=== PATIENT | female | born 1970 | race Caucasian/White ===

== ENCOUNTER 2017-07-13 18:16 | Emergency (ER) | payer OTHER ==
[2017-07-13] MEDS: LORAZEPAM 1 MG TAB PO (19:54)
== END 2017-07-13 20:37 | disposition home or self-care (01) ==
LOC: FTE 18:16
DX: F41.9 Anxiety disorder, unspecified (principal); I10 Essential (primary) hypertension
CPT/HCPCS: 82962; 93005; 99283-25

== ENCOUNTER 2018-01-10 11:21 | Emergency (ER) | payer OTHER ==
[2018-01-10 13:06] LABS: URINE PH (Dip) POC 6.5 (5.0-8.5)
[2018-01-10 13:06] LABS: URINE BLOOD (Dip) POC Trace-intact (NEGATIVE); URINE GLUCOSE (Dip) POC Negative (NEGATIVE); URINE KETONES (Dip) POC Negative (NEGATIVE); URINE LEUKOCYTE EST (Dip) POC 1+ (NEGATIVE); URINE NITRITE (Dip) POC Negative (NEGATIVE); URINE TOTAL PROTEIN POC Negative (NEGATIVE)
[2018-01-10] MEDS: KETOROLAC 30 MG INJ IM (13:11)
== END 2018-01-10 13:53 | disposition home or self-care (01) ==
LOC: FTE 11:21
DX: M54.42 Lumbago with sciatica, left side (principal); I10 Essential (primary) hypertension; E11.9 Type 2 diabetes mellitus without complications; Z87.891 Personal history of nicotine dependence
CPT/HCPCS: 81003; 81025; 87086; 96372; 99284-25

== ENCOUNTER 2019-01-28 15:07 | Emergency (ER) | payer OTHER ==
[2019-01-28 16:19] LABS: URINE PH (Dip) POC 6.5 (5.0-8.5)
[2019-01-28 16:19] LABS: URINE BLOOD (Dip) POC Trace-intact (NEGATIVE); URINE GLUCOSE (Dip) POC Negative (NEGATIVE); URINE KETONES (Dip) POC Negative (NEGATIVE); URINE LEUKOCYTE EST (Dip) POC 1+ (NEGATIVE); URINE NITRITE (Dip) POC Negative (NEGATIVE); URINE TOTAL PROTEIN POC Negative (NEGATIVE)
[2019-01-28] MEDS: ONDANSETRON (ODT) 4 MG TAB ODT (16:21)
[2019-01-28] MEDS: HYDROCODONE/APAP (5/325) TAB PO (16:21)
== END 2019-01-28 16:45 | disposition home or self-care (01) ==
LOC: FTE 16:45
DX: R51 Headache (principal); I10 Essential (primary) hypertension; Z87.891 Personal history of nicotine dependence
CPT/HCPCS: 81003; 81025; 99283

== ENCOUNTER 2019-02-02 08:28 | Emergency (ER) | payer OTHER ==
[2019-02-02] MEDS: KETOROLAC 30 MG INJ IV (09:46)
[2019-02-02] MEDS: SOD CHLORIDE 0.9% 1,000 ML IV (09:46)
[2019-02-02] MEDS: METOCLOPRAMIDE 10 MG INJ IV (10:50)
[2019-02-02] MEDS: DIPHENHYDRAMINE 50 MG INJ IV (10:50)
== END 2019-02-02 11:41 | disposition home or self-care (01) ==
LOC: FTE 08:28
DX: R51 Headache (principal); I10 Essential (primary) hypertension
CPT/HCPCS: 81025; 96361; 96374; 96375; 99284-25